=== PATIENT | male | born 1950 | race Caucasian/White ===

== ENCOUNTER → 2019-01-25 | Outpatient (CLI) | payer MEDICARE ==
--- NOTE | 2019-01-25 14:14 | RAD ---
Right lower extremity arterial ultrasound History: Right leg pain in the calf for years Findings: Multiple grayscale, color, and duplex spectral analysis sonographic images were acquired of the right lower extremity arteries. No focal vessel occlusion is demonstrated. There is some scattered mixed echogenicity plaque of the right lower extremity arteries. There is monophasic waveform of the dorsalis pedis artery, otherwise triphasic and biphasic waveforms. Velocities in cm/sec: Common femoral artery 145 Profunda femoris artery 98 Proximal SFA 129 Mid SFA 100 Distal SFA 67 Popliteal artery 51 Posterior tibial artery 65 proximally and 118 distally Peroneal artery 62 Anterior tibial artery 82 Dorsalis pedis artery 102 Impression: 1. No focal vessel occlusion is demonstrated. There is increasing velocity between the proximal and distal posterior tibial artery which may be due to intervening stenosis, no other significant stenosis demonstrated. Electronically signed by: Issa Quintana MD (01/25/2019 2:11 PM) [id number]
== END | disposition home or self-care (01) ==
LOC: US 12:15
PROVIDERS: ATTEND Family Medicine
DX: M79.604 Pain in right leg (principal)
CPT/HCPCS: 93926

== ENCOUNTER → 2019-03-01 | Outpatient (CLI) | payer MEDICARE, MEDICAID ==
--- NOTE | 2019-03-01 16:47 | RAD ---
PA and lateral chest. HISTORY: Cough PA and lateral views were taken of the chest. There is no prior study for comparison. Heart is normal in size. There is a right lung nodule possibly a granuloma. There is mild interstitial change in the lung bases from mild interstitial infiltrates or fibrosis. Follow-up study could be of benefit. Heart is normal in size. There is no effusion or heart failure. IMPRESSION: 1. Mild interstitial changes in the lung bases versus slight interstitial infiltrate on the right. 2. Small right lung nodule possibly a granuloma follow-up would be of benefit. Electronically signed by: Rell Wright MD (03/01/2019 4:45 PM) [facility]
== END | disposition home or self-care (01) ==
LOC: PMG 14:55
PROVIDERS: ATTEND Registered Nurse
DX: R91.1 Solitary pulmonary nodule (principal)
CPT/HCPCS: 71046